=== PATIENT | male | born 1975 | race African-American/Black ===

== ENCOUNTER 2023-11-30 17:25 | Inpatient (IN) | payer SELFPAY ==
[~2023-11-30] VITALS: Ht 165.1 cm; Wt 197.4 kg
[2023-11-30 19:13] LABS: BASO # 0.1 K/mm3 (0.0-0.2); EOS # 0.4 K/mm3 (0.0-0.7); EOS % 3.3 % (0.0-4.0); GRAN # 6.8 K/mm3 (1.4-6.5); GRAN % 54.9 % (42.2-75.2); HEMATOCRIT 49.3 % (42.0-52.0); HEMOGLOBIN 16.7 g/dl (13.5-18.0); LYMPH # 4.1 K/mm3 (1.2-3.4); LYMPH % 32.7 % (20.0-51.0); MEAN CELL VOLUME 96 fl (80.0-100.0); MEAN CORPUSCULAR HEMOGLOBIN 33 pg (27-31); MEAN CORPUSCULAR HGB CONC 34 g/dl (33.0-37.0); MONO % 7.8 % (1.7-9.3); PLATELET COUNT 272 K/mm3 (130-400); RED BLOOD COUNT 5.13 M/mm3 (4.20-5.60); REDCELL DISTRIBUTION WIDTH-CV 12.8 % (11.5-14.5)
[2023-11-30 19:26] LABS: ALBUMIN 4.2 gm/dL (3.5-5.0); BILIRUBIN,TOTAL 0.4 mg/dL (0.2-1.2); CALCIUM 9.8 mg/dL (8.4-10.2); CREATININE, serum 1.09 mg/dL (0.72-1.25); POTASSIUM 4.6 mmol/L (3.5-4.5); TOTAL PROTEIN 8.1 gm/dL (6.2-8.1)
[2023-11-30] MEDS ORDERED: hydrALAZINE 20 MG/ML 1 ML VIAL IV ONE (19:30)
[2023-11-30 19:31] LABS: TROPONIN-I 0.024 ng/mL (0.00-0.033)
[2023-11-30] MEDS ORDERED: Iohexol 300 - 100 ML VIAL IV ONE (20:01)
[2023-11-30] MEDS ORDERED: NS 74 ML IV ONE (20:02)
[2023-11-30 21:08] LABS: COLLECTION METHOD CLEAN CATCH
[2023-11-30] MEDS ORDERED: Aspirin 325 MG TAB PO SCH (21:15)
[2023-11-30] MEDS ORDERED: niCARdipine 200 ML IV ONE (21:15)
[2023-11-30] MEDS ORDERED: Acetaminophen 325 MG TAB PO PRN (21:15)
[2023-11-30 21:35] LABS: URINE APPEARANCE Clear (CLEAR/HAZY); URINE BLOOD Negative (NEGATIVE); URINE COLOR Yellow (YELLOW); URINE GLUCOSE Negative (NEGATIVE); URINE KETONE Negative (NEGATIVE); URINE NITRATE Negative (NEGATIVE); URINE PROTEIN(semi-quant) Negative (NEGATIVE); URINE UROBILINOGEN 0.2 E.U/dL (0.2-1.0)
[2023-11-30 21:45] LABS: SQUAMOUS EPITHELIAL 0-2 /hpf (0-10); URINE RBC None Seen /hpf (0-2)
[2023-11-30] MEDS ORDERED: niCARdipine 200 ML IV SCH (22:15)
[2023-12-01] VITALS (31 sets, daily range): BP systolic 110–179; BP diastolic 76–107; PULSE 59–111; TEMP 97.2–98.3; O2SAT 96–98
--- NOTE | 2023-12-01 00:15 | NUR ---
PATIENT ARRIVED TO ICU VIA BED FROM ER AND ABLE TO AMBULATE TO ICU BED. UPON ARRIVAL TO UNIT CARDENE DRIP WAS OFF. VERIFIED WITH ALEXIS OSORIO REGARDING PARAMETERS ON CARDENE DRIP TO KEEP SYSTOLIC UNDER 180. PATIENT ARRIVED WITH FAMILY AT BEDSIDE. ADVISED PATIENT TO SEND VALUABLES HOME WITH FAMILY. PATIENT ARRIVED WITH PHONE, PANTS, SHOES, UNDERWEAR, SOCKS, SHIRT, JACKET.
[2023-12-01] MEDS ORDERED: 1: LR 1,000 ML 2: NS 1,000 ML IV SCH ×3 (00:45→13:00)
[2023-12-01 01:29] LABS: BASO # 0.1 K/mm3 (0.0-0.2); EOS # 0.3 K/mm3 (0.0-0.7); EOS % 2.9 % (0.0-4.0); GRAN # 7.6 K/mm3 (1.4-6.5); GRAN % 63.7 % (42.2-75.2); HEMATOCRIT 47.4 % (42.0-52.0); LYMPH # 3.1 K/mm3 (1.2-3.4); LYMPH % 26.4 % (20.0-51.0); MEAN CORPUSCULAR HEMOGLOBIN 33 pg (27-31); MEAN CORPUSCULAR HGB CONC 36 g/dl (33.0-37.0); MEAN PLATELET VOLUME 9.9 fl (7.4-10.4); MONO # 0.7 K/mm3 (0.1-0.6); MONO % 5.6 % (1.7-9.3); PLATELET COUNT 262 K/mm3 (130-400); REDCELL DISTRIBUTION WIDTH-CV 12.4 % (11.5-14.5)
[2023-12-01 01:51] LABS: ANION GAP 11 mmol/L (7-16); BLOOD UREA NITROGEN 10 mg/dL (8-26); CALCIUM 9.9 mg/dL (8.4-10.2); CARBON DIOXIDE 20 mmol/L (22-29); CHLORIDE 106 mmol/L (98-107); CREATININE, serum 0.91 mg/dL (0.72-1.25); GLUCOSE 145 mg/dL (70-99); POTASSIUM 3.5 mmol/L (3.5-4.5); SODIUM 137 mmol/L (136-145)
[2023-12-01 02:00] LABS: TROPONIN-I < 0.010 ng/mL (0.00-0.033)
[2023-12-01 02:28] LABS: MEAN CELL VOLUME 91 fl (80.0-100.0)
[2023-12-01 04:58] LABS: BASO # 0.1 K/mm3 (0.0-0.2); EOS # 0.3 K/mm3 (0.0-0.7); EOS % 2.7 % (0.0-4.0); GRAN # 6.7 K/mm3 (1.4-6.5); GRAN % 56.7 % (42.2-75.2); HEMATOCRIT 46.2 % (42.0-52.0); HEMOGLOBIN 16.6 g/dl (13.5-18.0); LYMPH # 3.8 K/mm3 (1.2-3.4); MEAN CELL VOLUME 92 fl (80.0-100.0); MEAN CORPUSCULAR HEMOGLOBIN 33 pg (27-31); MEAN CORPUSCULAR HGB CONC 36 g/dl (33.0-37.0); MEAN PLATELET VOLUME 9.7 fl (7.4-10.4); MONO # 0.8 K/mm3 (0.1-0.6); PLATELET COUNT 267 K/mm3 (130-400); RED BLOOD COUNT 5.02 M/mm3 (4.20-5.60); REDCELL DISTRIBUTION WIDTH-CV 12.6 % (11.5-14.5)
[2023-12-01 05:17] LABS: CALCIUM 9.3 mg/dL (8.4-10.2); CREATININE, serum 0.82 mg/dL (0.72-1.25); POTASSIUM 3.6 mmol/L (3.5-4.5)
[2023-12-01] MEDS ORDERED: Potassium Chloride 100 ML IV SCH (05:30)
[2023-12-01] MEDS ORDERED: *Potassium Replacement Protocol MC SCH (05:30)
--- NOTE | 2023-12-01 07:15 | NUR ---
Report received from MIGUEL Barrett. MRI in room with pt at this time preparing to take him for his MRI. Reviewed plan for day. Ami remains off. Will continue with POC.
[2023-12-01] MEDS ORDERED: Gadoterate 20 ML VIAL IV ONE (07:31)
--- NOTE | 2023-12-01 09:00 | NUR ---
Assessment completed. Neuro checks are WNL. Pt c/o numbness in lips but denies any numbness anywhere else. No weakness noted in extremeites. Pt is oriented x4. IVF infusing per orders. Pt potassium replacement is infusing. Call light within reach. Will continue with POC.
--- NOTE | 2023-12-01 10:02 | NUR ---
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 He lives with his partner, . Pt does not have a PCP due to no insurance. SW provided list of [facility] providers and empahsized the [facility]. [facility] difficulties. Pt reports he is independent with ADLS and uses no DME. He does not have a DPOA-HC, but was agreeable to a copy. Pt stated he is still to someone else. SW provided that that individual would be his NOK without a DPOA. Pt verbalized understanding. Pt reports he would like to return home at discharge. SW left a voicemail to Specimen Preparation Assistant Elizabeth to discuss self pay option and FAA. Discharge Plan: Transfer to medical floor, Home when cleared
[2023-12-01] MEDS ORDERED: Nicotine 21 MG DAILY PATCH TD SCH (10:16)
--- NOTE | 2023-12-01 10:50 | NUR ---
Report called to MIGUEL Cloud. 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 Consent is signed for both. Pt had several questions anout anesthesia, notified Lauren about questions and he would like to talk to anesthesiologist. Pt will go up to room 318 after procedure.
[2023-12-01] MEDS ORDERED: Lidocaine PF 1% (10 MG/ML) 5 ML VIAL ONE (10:55)
[2023-12-01] MEDS ORDERED: Insulin Aspart (NovoLOG) SQ SCH ×2 (12:00→17:00)
--- NOTE | 2023-12-01 12:28 | NUR ---
PATIENT ALERT AND ORIENTED X4. PATIENT DENIES PAIN. NUMBNESS ON LIPS ON LEFT SIDE. PATIENT BLOOD PRESSURE IS ELEVATED BUT HE REPORTS IS BETTER THAN HIS USUAL BLOOD PRESSURE IS. CALL LIGHT WITHIN REACH. BED AT LOWEST POSITION.
[2023-12-01] MEDS ORDERED: Glucagon 1 MG VIAL IM PRN (16:15)
[2023-12-01] MEDS ORDERED: Dextrose 50% Water 25 GM/50 ML SYRINGE IV PRN (16:15)
[2023-12-01] MEDS ORDERED: Dextrose (Glucose) 15 GM (4 x 3.75 GM) Chewable TABLET PACK PO PRN (16:15)
[2023-12-01] MEDS ORDERED: Magnesium Oxide 400 MG TAB PO SCH (17:00)
[2023-12-01] MEDS ORDERED: Cephalexin 500 MG CAP PO SCH (21:00)
[2023-12-01] MEDS ORDERED: Atorvastatin 40 MG TAB PO SCH (21:00)
--- NOTE | 2023-12-01 21:15 | NUR ---
PT LAYING IN BED UPON ENTERING, AT BEDSIDE. PT FINISHED WITH SHOWER, PREVIOUS NICOTINE PATCH TO LEFT UPPER ARM FELL OFF AND NEW ONE APPLIED TO RIGHT UPPER ARM. ASSESSMENT DONE, MEDS GIVEN PER ORDER. PILLS CRUSHED AND GIVEN WITH JUICE PER PT REQUEST. PT DENIES PAIN AT THIS TIME. MCOT TO MIDDLE OF CHEST. IV TO LEFT AC RUNNING NS PER ORDER. PT DENIES NEEDS AT THIS TIME. BED IN LOWEST POSITION, CALL LIGHT IN REACH
[2023-12-02] VITALS (13 sets, daily range): BP systolic 160–193; BP diastolic 93–106; PULSE 60–85; TEMP 97.9–98.6
--- NOTE | 2023-12-02 06:25 | NUR ---
PT LAYING IN BED UPON ENTERING, SLEEPING AT BEDSIDE. FLUIDS RUNNING IF LEFT AC PER ORDER. PT HAD AN UNEVENTFUL NIGHT AND DENIES NEEDS AT THIS TIME. BED IN LOWEST POSITION, CALL LIGHT IN REACH
[2023-12-02 07:00] LABS: CALCIUM 9.3 mg/dL (8.4-10.2); CREATININE, serum 0.89 mg/dL (0.72-1.25); POTASSIUM 3.9 mmol/L (3.5-4.5)
[2023-12-02 07:08] LABS: CHOLESTEROL RISK RATIO 5.1; MAGNESIUM 1.8 mg/dL (1.6-2.6)
[2023-12-02 07:10] LABS: TSH w REFLEX 1.399 uIU/mL (0.350-4.940)
--- NOTE | 2023-12-02 07:11 | NUR ---
REPORT GIVEN TO MIGUEL MARVIN
[2023-12-02] MEDS ORDERED: Lisinopril 10 MG TAB PO SCH (10:23)
[2023-12-02] MEDS ORDERED: Potassium Bicarbonate/Citrate 20 MEQ Effervescent TAB PO ONE (10:30)
[2023-12-02] MEDS ORDERED: amLODIPine 10 MG TAB PO SCH (10:46)
[2023-12-02] MEDS ORDERED: Lisinopril 20 MG TAB PO SCH (11:15)
[2023-12-02] MEDS ORDERED: hydrALAZINE 10 MG TAB PO PRN (18:30)
--- NOTE | 2023-12-02 21:10 | NUR ---
PT LAYING IN BED UPON ENTERING. ASSESSMENT DONE, MEDS GIVEN PER ORDER. PILLS CRUSHED AND GIVEN WITH APPLE JUICE. PT DENIES PAIN AT THIS TIME. MCOT TO CHEST AND NICOTINE PATCH TO LEFT UPPER BACK. PT HAS NO IV AT THIS TIME, PER DAY SHIFT RN HOSPITALIST AWARE AND OKAY WITH THIS. PT DENIES NEEDS AT THIS TIME. BED IN LOWEST POSITION, CALL LIGHT IN REACH.
[2023-12-03 01:00] VITALS: BP_SYST 169
[2023-12-03 03:07] VITALS: BP 154/102; PULSE 88; TEMP 97.6
[2023-12-03 04:54] VITALS: BP_SYST 154
--- NOTE | 2023-12-03 06:23 | NUR ---
PT HAD AN UNEVENTFUL NIGHT AND DENIES NEEDS AT THIS TIME. BED IN LOWEST POSITION, CALL LIGHT IN REACH
--- NOTE | 2023-12-03 07:20 | NUR ---
REPORT GIVEN TO MIGUEL GARCIA
[2023-12-03 07:33] VITALS: BP 164/98; PULSE 80; TEMP 97.9
[2023-12-03] MEDS ORDERED: CEPHALEXIN500 M1 PO (08:39)
[2023-12-03] MEDS ORDERED: NORVASC 10MG10 MG PO (08:39)
[2023-12-03] MEDS ORDERED: LIPITOR 40MG TA40 MG PO (08:39)
[2023-12-03] MEDS ORDERED: ASPIRIN 81M81 MG/TA2 PO (08:40)
[2023-12-03] MEDS ORDERED: ZESTRIL40 MG PO (08:40)
[2023-12-03] MEDS ORDERED: NICODERM C21 MG/PATC TD (08:40)
--- NOTE | 2023-12-03 08:58 | NUR ---
Patient awake, alert and oriented. Denies pain, shortness of breath, or nausea. States he still has tingling sensation on left side of lower lip but is improving. Steady on feet. Bed in lowest position with call light within reach.
[2023-12-03 09:00] VITALS: BP_SYST 164
[2023-12-03] MEDS ORDERED: Lisinopril 20 MG TAB PO SCH (09:00)
--- NOTE | 2023-12-03 10:00 | NUR ---
Educated on discharge instructions, new medications and follow up appointments. Patient verbalized understanding. No IV in place. Assisted to car by nursing staff.
[2023-12-03] MEDS ORDERED: PLAVIX 75MG TAB75 MG PO (11:13)
== END 2023-12-03 10:36 | disposition home or self-care (01) | DRG 66 ==
LOC: COL.ER 17:25 → ICU 21:21 → MEDICAL 12-01 11:01
PROVIDERS: Internal Medicine Critical Care Medicine; Nurse Practitioner; Nurse Practitioner Family; ADMIT Internal Medicine
DX: I63.81 Other cerebral infarction due to occlusion or stenosis of small artery (principal); I16.0 Hypertensive urgency; I10 Essential (primary) hypertension; F17.210 Nicotine dependence, cigarettes, uncomplicated; R20.2 Paresthesia of skin; I72.0 Aneurysm of carotid artery; D72.829 Elevated white blood cell count, unspecified; R29.700 NIHSS score 0
CPT/HCPCS: A9575; J0360; J1650; J2404; J2704; J3480; J7030; J7120; Q3014; Q9967

== ENCOUNTER 2023-12-06 18:08 | Emergency (ER) | payer SELFPAY ==
[~2023-12-06] VITALS: Ht 165.1 cm; Wt 89.5 kg
[~2023-12-06 18:08] MED LIST: ASPIRIN 81M81 MG/TA2 PO; CEPHALEXIN500 M1 PO; LIPITOR 40MG TA40 MG PO; NICODERM C21 MG/PATC TD; NORVASC 10MG10 MG PO; PLAVIX 75MG TAB75 MG PO; ZESTRIL40 MG PO
[2023-12-06 18:15] VITALS: TEMP 97.1
[2023-12-06] MEDS ORDERED: hydrALAZINE 20 MG/ML 1 ML VIAL IV ONE ×2 (18:45→20:45)
[2023-12-06 18:50] LABS: BASO # 0.1 K/mm3 (0.0-0.2); BASO % 0.9 % (0.0-2.0); EOS # 0.4 K/mm3 (0.0-0.7); EOS % 4.1 % (0.0-4.0); GRAN # 5.8 K/mm3 (1.4-6.5); GRAN % 53.5 % (42.2-75.2); HEMATOCRIT 49.3 % (42.0-52.0); HEMOGLOBIN 17.1 g/dl (13.5-18.0); LYMPH # 3.5 K/mm3 (1.2-3.4); LYMPH % 32.6 % (20.0-51.0); MEAN CELL VOLUME 94 fl (80.0-100.0); MEAN CORPUSCULAR HEMOGLOBIN 33 pg (27-31); MEAN CORPUSCULAR HGB CONC 35 g/dl (33.0-37.0); MEAN PLATELET VOLUME 9.5 fl (7.4-10.4); MONO # 0.9 K/mm3 (0.1-0.6); MONO % 8.5 % (1.7-9.3); PLATELET COUNT 274 K/mm3 (130-400); RED BLOOD COUNT 5.24 M/mm3 (4.20-5.60); REDCELL DISTRIBUTION WIDTH-CV 12.3 % (11.5-14.5)
[2023-12-06 19:05] LABS: ALBUMIN 4.2 gm/dL (3.5-5.0); BILIRUBIN,TOTAL 0.5 mg/dL (0.2-1.2); CREATININE, serum 1.09 mg/dL (0.72-1.25); POTASSIUM 3.8 mmol/L (3.5-4.5); TOTAL PROTEIN 7.9 gm/dL (6.2-8.1)
[2023-12-06] MEDS ORDERED: cloNIDine 0.1 MG TAB PO ONE (19:30)
[2023-12-06] MEDS ORDERED: CATAPRES 0.1MG0.1 MG PO (20:34)
[2023-12-06 21:08] VITALS: BP 162/100; PULSE 99
== END 2023-12-06 21:10 | disposition home or self-care (01) ==
LOC: COL.ER 18:08
PROVIDERS: Emergency Medicine
DX: I10 Essential (primary) hypertension (principal); D64.9 Anemia, unspecified; I77.89 Other specified disorders of arteries and arterioles; Z79.899 Other long term (current) drug therapy; Z79.02 Long term (current) use of antithrombotics/antiplatelets; Z79.82 Long term (current) use of aspirin; Z87.891 Personal history of nicotine dependence
CPT/HCPCS: J0360

== ENCOUNTER → 2024-03-03 | Outpatient (CLI) | payer SELFPAY ==
[~2024-03-03] MED LIST changes: +CATAPRES 0.1MG0.1 MG PO
[2024-03-03 10:03] LABS: BILIRUBIN,TOTAL 0.5 mg/dL (0.2-1.2); CALCIUM 9.9 mg/dL (8.4-10.2); CREATININE, serum 1.08 mg/dL (0.72-1.25); MAGNESIUM 1.8 mg/dL (1.6-2.6); POTASSIUM 4.1 mEq/L (3.5-4.5); TOTAL PROTEIN 7.7 g/dl (6.2-8.1)
== END ==
LOC: COL.LAB 09:10
DX: I10 Essential (primary) hypertension (principal)

== ENCOUNTER → 2024-04-08 | Outpatient (CLI) | payer SELFPAY | LOC: COL.LAB 08:10 | DX: I10 Essential (primary) hypertension (principal) ==